=== PATIENT | female | born 1955 | race Caucasian/White ===

== ENCOUNTER → 2022-06-21 | Outpatient (CLI) | payer MEDICARE, SELFPAY ==
--- NOTE | 2022-06-21 12:23 | BI_ITS ---
MAMMOGRAPHY - BILATERAL SCREENING REASON FOR EXAM: Female, 67 years old. Routine annual screening examination. PERTINENT HISTORY: Non-contributory. TECHNIQUE: Digital bilateral breast ej (3D mammographic acquisition) in the CC and MLO projections. 2-D mediolateral oblique (MLO) and craniocaudad (CC) views of both breasts were obtained. CAD: Full Field Digital Mammography with Computer Added Detection was performed. COMPARISON: None. Baseline examination. FINDINGS: Breast Composition: The breasts are heterogeneously dense, which may obscure small masses. There are no dominant masses or suspicious calcifications. No other significant abnormalities are identified. BI/SCRN MAMM (CAD)W/EJ BILAT IMPRESSION: Negative screening mammogram. Yearly followup mammogram recommended. (A) ASSESSMENT CATEGORY: BIRADS Category 1: Negative. A letter regarding these results will be sent to the patient by the facility within 30 days. Approximately 10% of breast cancers are not detected by mammography. A normal mammogram should not delay biopsy of a clinically suspicious abnormality. [id number] Electronically Signed: Ethan Brooks MD at 14:10 EST ,
--- NOTE | 2022-06-21 12:29 | BD_ITS ---
STUDY: DUAL ENERGY X-RAY ABSORPTIOMETRY / DXA REASON FOR EXAM: Female, 67 years old. [id number] TECHNIQUE: Bone Mineral Density (BMD) measurements of lumbar spine and bilateral hips were obtained. COMPARISON: None. FINDINGS: Lumbar Spine (L1-L4): g/cm2 (0.651) / T-score (-3.6) / Z-score (-1.6) Findings are suggestive of osteoporosis with a high fracture risk. Left Femur Total: g/cm2 (0.685) / T-score (-2.1) / Z-score (-0.7) Left Femoral Neck: g/cm2 (0.573) / T-score (-2.5) / Z-score (-0.8) Right Femur Total: g/cm2 (0.681) / T-score (-2.1) / Z-score (-0.7) Right Femoral Neck: g/cm2 (0.619) / T-score (-2.1) / Z-score (-0.4) BD/Dexa Bone Density Study IMPRESSION: The patient is considered osteoporotic as outlined below according to World Brooks Organization (WHO) criteria with a high fracture risk. Reference Information: The T-score is the number of standard deviations above or below the standard which is normal for young adults at their peak bone mineral density. The World Health Organization (WHO) interprets the T-scores as follows: Above -1 Normal bone density Between -1 and -2.5 Osteopenia Equal to / or below -2.5 Osteoporosis As a practical clinical guideline, osteopenia may be graded as follows: Mild -1 through -1.5 Moderate -1.6 through -2.0 Severe -2.1 through -2.4 The Z-score is the number of standard deviations above or below age-matched controls. A Z-score of less than -1.5 would be considered abnormal. References: 1. NIH Osteoporosis and Related Bone Diseases www osteo.org 2. International Society for Clinical Densitometry www iscd.org 3. National Osteoporosis Foundation www nof.org Electronically Signed: Ethan Brooks MD at 9:42 EST ,
== END | disposition home or self-care (01) ==
LOC: OPBD 12:19
PROVIDERS: PCP Family Medicine; Referring Provider Family Medicine; Visit Provider Family Medicine
DX: Z12.31 Encounter for screening mammogram for malignant neoplasm of breast (principal); Z78.0 Asymptomatic menopausal state
CPT/HCPCS: 77063; 77067; 77080

== ENCOUNTER → 2022-08-04 | Outpatient (CLI) | payer MEDICARE, SELFPAY ==
[2022-08-04 13:18] LABS: Vitamin D,25 Hydroxy 49.4 ng/mL
[2022-08-04 13:41] LABS: Anion Gap 9 (5-15); BUN 18 mg/dL (7-18); BUN/Creat Ratio 20.1 RATIO (10-20); Calcium,Total 9.6 mg/dL (8.5-10.1); Chloride 104 mmol/L (98-107); Cholesterol 240 mg/dL (200); Creatinine, Serum 0.89 mg/dL (0.55-1.02); EST Glomerular Filtration Rate 67 mL/min (>60); Est Glom Filt Rate - Afr Amer 81 mL/min (>60); Glucose 145 mg/dL (74-106); High Density Lipoprotein 86 mg/dL; Potassium 4.5 mmol/L (3.5-5.1); Sodium Level 141 mmol/L (136-145); Triglycerides 127 mg/dL; Very Low Density Lipoprotein 25 mg/dL (5-40)
== END | disposition home or self-care (01) ==
LOC: MFPLAB 11:01
PROVIDERS: PCP Family Medicine; Referring Provider Family Medicine; Visit Provider Family Medicine
DX: Z91.89 Other specified personal risk factors, not elsewhere classified (principal); Z13.220 Encounter for screening for lipoid disorders; E55.9 Vitamin D deficiency, unspecified
CPT/HCPCS: 36415; 80048; 80061; 82306

== ENCOUNTER → 2023-09-14 | Outpatient (CLI) | payer MEDICARE, SELFPAY ==
--- NOTE | 2023-09-14 10:56 | BI_ITS ---
MAMMOGRAPHY - BILATERAL SCREENING REASON FOR EXAM: Female, 68 years old. Routine annual screening examination. PERTINENT HISTORY: Non-contributory. TECHNIQUE: Digital bilateral breast ej (3D mammographic acquisition) in the CC and MLO projections. 2-D mediolateral oblique (MLO) and craniocaudad (CC) views of both breasts were obtained. CAD: Full Field Digital Mammography with Computer Added Detection was performed. COMPARISON: Comparison is made with prior study dated June 21, 2022. FINDINGS: Breast Composition: The breasts are heterogeneously dense, which may obscure small masses. There are no dominant masses or suspicious calcifications. No other significant abnormalities are identified. There has been no significant change since the prior study. BI/SCRN MAMM (CAD)W/EJ BILAT IMPRESSION: Stable bilateral screening mammogram. Yearly follow-up mammogram recommended. (A) ASSESSMENT CATEGORY: BIRADS Category 1: Negative. A letter regarding these results will be sent to the patient by the facility within 30 days. Approximately 10% of breast cancers are not detected by mammography. A normal mammogram should not delay biopsy of a clinically suspicious abnormality. [id number] Electronically Signed: Ethan Brooks MD at 13:12 EDT ,
== END | disposition home or self-care (01) ==
PROVIDERS: PCP Family Medicine; Referring Provider Family Medicine; Visit Provider Family Medicine
DX: Z12.31 Encounter for screening mammogram for malignant neoplasm of breast (principal)
CPT/HCPCS: 77063; 77067

== ENCOUNTER → 2023-11-22 | Outpatient (CLI) | payer MEDICARE, SELFPAY ==
[2023-11-22 12:30] LABS: Anion Gap 6 (5-15); BUN 18 mg/dL (7-18); BUN/Creat Ratio 18.3 RATIO (10-20); Chloride 105 mmol/L (98-107); Cholesterol 234 mg/dL (200); Creatinine, Serum 0.98 mg/dL (0.55-1.02); EST Glomerular Filtration Rate 60 mL/min (>60); Est Glom Filt Rate - Afr Amer 72 mL/min (>60); Glucose 100 mg/dL (74-106); High Density Lipoprotein 88 mg/dL; Potassium 4.2 mmol/L (3.5-5.1); Sodium Level 136 mmol/L (136-145); Triglycerides 94 mg/dL; Very Low Density Lipoprotein 19 mg/dL (5-40)
== END | disposition home or self-care (01) ==
LOC: MFPLAB 10:06
PROVIDERS: PCP Family Medicine; Visit Provider Family Medicine
DX: R73.09 Other abnormal glucose (principal); E78.5 Hyperlipidemia, unspecified
CPT/HCPCS: 36415; 80048; 80061

== ENCOUNTER → 2024-03-01 | Outpatient (CLI) | payer MEDICARE, SELFPAY ==
[2024-03-01 12:42] LABS: Anion Gap 3 (5-15); BUN 14 mg/dL (7-18); BUN/Creat Ratio 15.4 RATIO (10-20); Chloride 107 mmol/L (98-107); Cholesterol 240 mg/dL (200); Creatinine, Serum 0.91 mg/dL (0.55-1.02); EST Glomerular Filtration Rate 65 mL/min (>60); Est Glom Filt Rate - Afr Amer 79 mL/min (>60); Glucose 99 mg/dL (74-106); High Density Lipoprotein 99 mg/dL; Potassium 4.3 mmol/L (3.5-5.1); Sodium Level 138 mmol/L (136-145); Triglycerides 89 mg/dL; Very Low Density Lipoprotein 18 mg/dL (5-40)
== END | disposition home or self-care (01) ==
LOC: MFPLAB 10:30
PROVIDERS: PCP Family Medicine; Visit Provider Family Medicine
DX: Z00.00 Encounter for general adult medical examination without abnormal findings (principal); E78.5 Hyperlipidemia, unspecified
CPT/HCPCS: 36415; 80048; 80061

== ENCOUNTER → 2024-09-03 | Outpatient (CLI) | payer OTHER, MEDICARE, SELFPAY ==
[2024-09-03 13:29] LABS: ALB/GLOB Ratio 1.6 RATIO (0.9-2.4); AST(SGOT) 22 U/L (<=31); Alanine Aminotransfer ALT/SGPT 13 U/L (<=34); Albumin, Serum 4.2 g/dL (3.4-4.8); Alkaline Phosphatase 62 U/L (35-104); Anion Gap 11 (5-15); BUN 12 mg/dL (4-19); BUN/Creat Ratio 14.6 RATIO (10-20); Calcium,Total 9.4 mg/dL (7.6-11.0); Carbon Dioxide 25.7 mmol/L (21.0-32.0); Chloride 104 mmol/L (98-108); Cholesterol 219 mg/dL (<=200); Creatinine, Serum 0.82 mg/dL (0.70-1.20); EST Glomerular Filtration Rate 77 (>60); Globulin 2.6 g/dL (2.2-4.2); Glucose 96 mg/dL (70-99); High Density Lipoprotein 74 mg/dL; Low Density Lipoprotein Calc. 127 mg/dL; Potassium 4.3 mmol/L (3.3-5.1); Protein, Total 6.8 g/dL (5.9-8.4); Sodium Level 142 mmol/L (133-145); Total Bilirubin 0.31 mg/dL (0.00-1.30); Triglycerides 89 mg/dL; Very Low Density Lipoprotein 18 mg/dL (5-40); cholesterol:hdl ratio screen 2.95
== END | disposition home or self-care (01) ==
PROVIDERS: PCP Family Medicine; Referring Provider Family Medicine; Visit Provider Family Medicine
DX: R73.09 Other abnormal glucose (principal); E78.5 Hyperlipidemia, unspecified
CPT/HCPCS: 36415; 80053; 80061

== ENCOUNTER → 2024-09-17 | Outpatient (CLI) | payer MEDICARE, SELFPAY ==
--- NOTE | 2024-09-17 15:46 | BI_ITS ---
EXAM: SCRN MAMM (CAD)W/EJ BILAT DATE: 09/17/2024 CLINICAL HISTORY: F, Age 69 y/o , ANNUAL BREAST CANCER RISK ASSESSMENT: Not reported TECHNIQUE: Bilateral screening digital breast tomosynthesis with 2D and 3D images. Computer aided detection. COMPARISON: Prior exam(s) were compared FINDINGS: TISSUE DENSITY: The breast tissue is heterogenously dense, which may obscure small masses. Bilateral Breast Mammographic Findings: No suspicious masses, calcifications or other abnormalities are identified. BI/SCRN MAMM (CAD)W/EJ BILAT IMPRESSION: OVERALL FINAL ASSESSMENT: BIRADS 1 NEGATIVE RECOMMENDATION: Routine annual follow-up in 1 Year A letter with findings and recommendations will be mailed to the patient. Reading Location: [id number]
--- NOTE | 2024-09-17 15:50 | BD_ITS ---
PROCEDURE: DEXA BONE DENSITY STUDY 09/17/2024 REASON FOR EXAM: F, age 69 y/o . Postmenopausal. TECHNIQUE: DEXA scan of sites with data reported below. Scanner utilized: BLOVES REFERENCE LINKS: [facility] Adult Position[facility] COMPARISON: DEXA examination dated 06/21/2022 FINDINGS: BMD and T-SCORES Lumbar spine: 0.675 g/cm2, T-score -3.4 Levels: L1 through L4 Change from prior: 3.7%. Left femoral neck: 0.558 g/cm2, T-score -2.6 Left total hip: 0.693 g/cm2, T-score -2.0 Change from prior: 1.2%. Right femoral neck: 0.611 g/cm2, T-score -2.1 Right total hip: 0.689 g/cm2, T-score -2.1 Change from prior: 1.1%. The World Health Organization has defined the following categories based on bone density: Normal bone density: T-score equal to or greater than -1.0 Osteopenia: T-score between -1.0 and -2.5 Osteoporosis: T-score equal to or less than -2.5 FRAX (or Comparable) Fracture Risk Assessment: 10 Year Probability of Fracture: Major Osteoporotic Fracture: 22% Hip Fracture: 5.8% (Note: FRAX is not to be reported in setting of normal range bone density, osteoporosis on DEXA, known history of osteoporosis, prior osteoporotic hip or vertebral fracture, or for any patient undergoing pharmacological treatment for bone loss.) The National Osteoporosis Foundation (NOF) recommends pharmacological treatment for patients with a FRAX 10-year risk of 3% or higher for a hip fracture, or 20% or higher for a major osteoporotic fracture, to prevent osteoporosis and reduce fracture risk. The patient does meet the pharmacological treatment recommendations for prevention of osteoporosis. BD/Dexa Bone Density Study IMPRESSION: OSTEOPOROSIS. Recommend follow-up as clinically warranted. Reading Location: [id number]
== END | disposition home or self-care (01) ==
PROVIDERS: PCP Family Medicine; Referring Provider Family Medicine; Visit Provider Family Medicine
DX: Z12.31 Encounter for screening mammogram for malignant neoplasm of breast (principal); M81.0 Age-related osteoporosis without current pathological fracture
CPT/HCPCS: 77063; 77067; 77080

== ENCOUNTER 2025-01-31 10:21 | Day surgery (SDC) | payer MEDICARE, SELFPAY ==
[2025-01-31] VITALS (8 sets, daily range): BP systolic 87–139; BP diastolic 60–79; PULSE 75–86; RESP 14–18; TEMP 36.2–36.3; O2SAT 95–99; BMI 20.9
--- NOTE | 2025-01-31 10:35 | HP.PCM_ITS ---
[facility] - General General Date of Admission: 01/31/25 Date of Service: 01/31/25 Chief Complaint: Screening colonoscopy HPI Narrative BONITA HARVEY, is a 69 F who presents for a screening colonoscopy Patient here today for consultation for screening colonoscopy. Last colonoscopy was 10 years ago with no abnormalities. She denies history of colonic polyps. She denies family history of colon cancer. She has regular daily bowel movements. She has no GI symptoms including nausea, vomiting, heartburn, abdominal pain, constipation, diarrhea or blood in her stool. [facility], [facility] Medical History Wears glasses Post-menopausal Leg cramps Non-smoker Home Medications ?Medication ?Instructions ?Recorded ?Last Taken ?Type alendronate 70 mg tablet 70 mg PO MO 12/17/24 Unknown History CARINATION INSTANT BREAKFAST 1 packet PO DAILY 5 01/27/25 History ascorbic acid (vitamin C) 500 mg 500 mg PO DAILY 01/28 Unknown History tablet (C-500) calcium 600 mg capsule 600 mg PO BID 01/28/25 Unkno wn History cholecalciferol (vitamin D3) 25 25 mcg PO BID 01/28/25 Unknown History mcg (1,000 unit) capsule (Vitamin D3) lutein 20 mg capsule 20 mg PO DAILY 01/28/25 Unkn own History magnesium 200 mg tablet 400 mg PO DAILY 01/28/25 Unk nown History multivitamin with iron (Daily 1 tab PO DAILY 01/28/25 01/24/25 History Vitamin with Iron tablet) vitamin E 200 unit capsule 402 mg PO DAILY 01/28/25 Un known History Allergy/AdvReac Type Severity Reaction Status Date / Time No Known Allergies Allergy Verified 01/28/25 10:34 Surgical History Hx of colonoscopy Social History Smoking Status: Never smoker ROS Constitutional Constitutional: Denies fatigue, fever(s), poor appetite, weight gain or weight loss Gastrointestinal Gastrointestinal: Denies belching, bloating, change in bowel habits, change in stool character, chewing difficulty, coffee ground emesis, constipation, cramping, diarrhea, dyspepsia, dysphagia, early satiety, excessive flatus, fecal incontinence, heartburn, hematemesis, hematochezia, hemorrhoids, loose stools, melena, nausea, odynophagia, rectal bleeding, tenesmus, vomiting or weight sergio nges Physical Exam Const alert, oriented x3, no apparent distress and healthy appearing General Appearance: cooperative GI normal to inspection, nondistended, normoactive bowel sounds, soft to palpation, non-tender and non-distended Percussion: normal to percussion Rectal Exam: deferred Assessment & Plan Assessment/Plan (1) Screening for colon cancer: PLAN: Assessment and Plan Assessment and Plan (1) Screening for colon cancer: Status: Acute Plan: Bonita is a 69-year-old female patient here today for consultation for screening colonoscopy. Patient's last colonoscopy was 10 years ago without abnormalities. She denies family history of colon cancer. She denies all GI symptoms. She was scheduled for screening colonoscopy. - Colonoscopy - Follow-up as needed
[2025-01-31] MEDS: Lactated Ringers 1,000 ML 15 ML IV (10:50)
--- NOTE | 2025-01-31 10:51 | PRE.ANES_ITS ---
ASA Classification* ASA Classification ASA Classification: 2 Assessment & Plan Anesthesia* Anesthesia Assessment Anesthesia Assessment: Discussed sedation and/or anesthesia options, risks, benefits, and alternatives with patient/parents/legal guardian/POA. Questions invited. The patient/parents/legal guardian/POA seems to understand and agrees to proceed with anesthesia plan. Reviewed the physical assessment, medical history, allergy history and patient home medications list prior to surgery/procedure/anesthetic and documented any changes. Performed airway and anesthesia risk assessments. Anesthesia Type Anesthesia Type: MAC Anesthesia Focused Assessment* Temperature: 97.4 F Pulse Rate: 86 Blood Pressure: 139/79 Respiratory Rate: 18 Pulse Ox: 99 Airway Assessment Mouth opens: >3 cm Mallampati Score: II Labs Anesthesia Preop lab: CBC CHEMISTRY Potassium, (3.3-5.1) 4.3 mmol/L 09/03/24, 09:30 Sodium, (133-145) 142 mmol/L 09/03/24, 09:30 BUN, (4-19) 12 mg/dL 09/03/24, 09:30 Creatinine, (0.70-1.20) 0.82 mg/dL 09/03/24, 09:30 Glucose, (70-99) 96 mg/dL 09/03/24, 09:30 COAG Pre-Assessment Diagnosis/Proposed Procedure Planned Operative Procedure(s): COLONOSCOPY Anesthesia History Anesthesia History - family preservation caseworker: Anesthesia History - family preservation caseworker Hx Hospitalization No 01/28/25 10:39 Any Problems With Anesthesia No 01/28/25 10:39 Cholinesterase deficiency No 01/28/25 10:39 You/Your Family Experience No 01/28/25 10:39 fever (hyperthermia) with Relationship Recent Exposure to Contagious No 01/31/25 10:46 Disease Does patient have nerve No 01/28/25 10:39 stimulator Patient instructed to have device shut off --Does patient have Pacemaker No 01/31/25 10:46 or ICD? When Was Last Pacemaker Check QUESTION #4 FULL TEXT: You/Your Family Experience fever (hyperthermia) with Anesthesia Last Oral Intake Last Oral intake: Last Oral Intake NPO since 08:00 01/31/25 10:46 Meds taken in AM with sips of No 01/31/25 10:46 water? Meds patient instructed to take am of surgery PONV PONV - family preservation caseworker: PONV - family preservation caseworker Female Yes 01/28/25 10:39 HX of Motion Sickness Yes 01/28/25 10:39 HX of N/V After Surgery No 01/28/25 10:39 Non-Smoker Yes 01/28/25 10:39 Duration of Surgery greater No 01/28/25 10:39 than 60 minutes Number of Risk Factors 3 01/28/25 10:39 PONV Score Moderate Risk 01/28/25 10:39 Height & Weight Height & Weight: Anesthesia: Height & Weight Height 5 ft 5 in 01/31/25 10:46 Weight: 57.2 kg 01/31/25 10:46 Body Mass Index (BMI) 20.9 01/31/25 10:46 Respiratory Assessment Respiratory Assessment - family preservation caseworker: Respiratory Tract Infection Hx - family preservation caseworker Hx Respiratory Tract Infection No 01/28/25 10:39 STOP Sleep Apnea STOP Sleep Apnea - family preservation caseworker: STOP Sleep Apnea - family preservation caseworker Hx Hypertension No 01/28/25 10:39 Hx Sleep Apnea No 01/28/25 10:39 CPAP BIPAP Do you snore loudly (louder No 01/28/25 10:39 than talking or can be heard Do you often feel tired/ No 01/28/25 10:39 fatigued/ sleepy during daytime? Has anyone observed you stop No 01/28/25 10:39 breathing during sleep? STOP Results Negative 01/28/25 10:39 QUESTION #5 FULL TEXT : Do you snore loudly (louder than talking or can be heard through closed doors)? Tobacco Use History Tobacco Use History - family preservation caseworker: Tobacco Use History - family preservation caseworker Tobacco Use Non-smoker 02/11/13 01:31 Smoking Status Never smoker 01/28/25 10:39 Hx Tobacco Use No 01/28/25 10:39 Years Smoking Packs Smoked per Day Smoking Cessation Date was within the last 15 years Hx Smoking Cessation Date Hx Smoking Cessation Counseling Hematologic Medial History Hematologic Hx - family preservation caseworker: Hematologic Medical Hx - laboratory chief Hx of Blood Transfusion No 01/28/25 10:39 Hx of Transfusion in last 3 No 01/28/25 10:39 Months Date of Last Transfusion (if within last 3 months) Ever experience any problems No 01/28/25 10:39 with transfusion(s)? Specify any problems Hx of Preganancy in last 3 No 01/28/25 10:39 Months Nurse Filling Out Transfusion DSCHRIBER 01/28/25 10:39 & Questions: Date: 01/28/25 01/28/25 10:39 Time: 10:42 01/28/25 10:39 Patient unable to answer at this time (ie. confused, unrespo /Reproduction History /Reproductive History - family preservation caseworker: /Reproductive Hx- family preservation caseworker Hx Now No 01/28/25 10:39 Gestational Age (in weeks): EDC: Hx Hx Para Hx Section SAB No 01/28/25 10:39 Active Medications Active Medications: Current Medications Generic Name Dose Route Start Last Admin Trade Name Freq PRN Reason Stop Dose Admin Lactated Ringer's 1,000 mls @ 15 mls/hr 01/31/25 10:30 01/31/25 10:50 IV 15 mls/hr .Q48H JASMYN Administration PFSH Medical History Wears glasses Post-menopausal Leg cramps Non-smoker Home Medications ?Medication ?Instructions ?Recorded ?Last Taken ?Type alendronate 70 mg tablet 70 mg PO MO 12/17/24 Unknown History CARINATION INSTANT BREAKFAST 1 packet PO DAILY 5 01/27/25 History ascorbic acid (vitamin C) 500 mg 500 mg PO DAILY 01/28 Unknown History tablet (C-500) calcium 600 mg capsule 600 mg PO BID 01/28/25 Unkno wn History cholecalciferol (vitamin D3) 25 25 mcg PO BID 01/28/25 Unknown History mcg (1,000 unit) capsule (Vitamin D3) lutein 20 mg capsule 20 mg PO DAILY 01/28/25 Unkn own History magnesium 200 mg tablet 400 mg PO DAILY 01/28/25 Unk nown History multivitamin with iron (Daily 1 tab PO DAILY 01/28/25 01/24/25 History Vitamin with Iron tablet) vitamin E 200 unit capsule 402 mg PO DAILY 01/28/25 Un known History Allergy/AdvReac Type Severity Reaction Status Date / Time No Known Allergies Allergy Verified 01/31/25 10:45 Surgical History Hx of colonoscopy Social History Smoking Status: Never smoker Review of Systems (Anesthesia) ROS Narrative System reviewed and no additional complaints, except as documented.
--- NOTE | 2025-01-31 11:30 | COLBX_PTH ---
PATIENT: ASHLEIGH HARVEY LOC: EN U#:[id number] AGE/SX: 69/F ROOM: RE01/31/[address]: Dr. Luis Blount DO : 1955 BED: DIS: 01/31/2025 SPEC #: [id number] RECD: 01/31/25 12:45 STATUS: ELSA REMk #: [id number] AKI: 01/31/25 11:[address]: Luis Blount DEPT: SURGICAL PATHOLOGY RECD BY: Pablo Diane ENTERED: 01/31/25 15:43 SP TYPE: COLON BX OT DR: Dr. Otto Quiñones MD Tissues: A - Descending colon Procedures: Surgery Specimen Level IV HEADER OPERATION: Colonoscopy, polypectomy PRE-OP DIAGNOSIS: Screening, polyp TISSUE SUBMITTED: A- Descending colon polyp MICROSCOPIC DIAGNOSIS A. Descending colon, polyp, biopsy: * Tubular adenoma. MICROSCOPIC DESCRIPTION Slides are reviewed. GROSS DESCRIPTION A. Received in fixative is one container labeled with the patient's name and designated Descending colon polyp. The specimen consists of two irregular fragments of light teixeira soft tissue that measure 0.8 and 1.1 cm. The specimen is totally submitted in one cassette. OR 01/31/2025 CPT:17879
--- NOTE | 2025-01-31 11:38 | OP.COLON_ITS ---
Patient Name: Bonita Leon Procedure Date: 01/31/2025 11:02 AM Date of : 1955 Age: 69 Procedure: Colonoscopy Indications: Screening for colorectal malignant neoplasm Providers: Luis Blount DO Referring MD: Otto Quiñones MD Medicines: Monitored Anesthesia Care Patient Profile: This is a 69 year old female. Refer to note in patient chart for documentation of history and physical. Last Colonoscopy: 10 years ago. Complications: No immediate complications. Procedure: Pre-Anesthesia Assessment: - Prior to the procedure, a History and Physical was performed, and patient medications and allergies were reviewed. The patient is competent. The risks and benefits of the procedure and the sedation options and risks were discussed with the patient. All questions were answered and informed consent was obtained. Patient identification and proposed procedure were verified by the physician in the pre-procedure area. Mental Status Examination: alert and oriented. Airway Examination: normal oropharyngeal airway and neck mobility. Respiratory Examination: clear to auscultation. CV Examination: normal. Prophylactic Antibiotics: The patient does not require prophylactic antibiotics. Prior Anticoagulants: The patient has taken no anticoagulant or antiplatelet agents. ASA Grade Assessment: II - A patient with mild systemic disease. After reviewing the risks and benefits, the patient was deemed in satisfactory condition to undergo the procedure. The anesthesia plan was to use monitored anesthesia care (MAC). Immediately prior to administration of medications, the patient was re-assessed for adequacy to receive sedatives. The heart rate, respiratory rate, oxygen saturations, blood pressure, adequacy of pulmonary ventilation, and response to care were monitored throughout the procedure. The physical status of the patient was re-assessed after the procedure. After I obtained informed consent, the scope was passed under direct vision. Throughout the procedure, the patient's blood pressure, pulse, and oxygen saturations were monitored continuously. The Colonoscope was introduced through the anus and advanced to the cecum, identified by appendiceal orifice and ileocecal valve. The colonoscopy was performed without difficulty. The patient tolerated the procedure well. The quality of the bowel preparation was adequate. The ileocecal valve, appendiceal orifice, and rectum were photographed. Scope In: 11:09:48 AM Scope Withdrawal Time 0 hours 10 minutes 8 seconds Scope Out: 11:32:03 AM Total Procedure Duration Time 0 hours 22 minutes 15 seconds Findings: The perianal and digital rectal examinations were normal. An 8 mm polyp was found in the descending colon. The polyp was sessile. The polyp was removed with a hot snare. Resection and retrieval were complete. Verification of patient identification for the specimen was done. Estimated blood loss was minimal. The exam was otherwise without abnormality on direct and retroflexion views. Impression: - One 8 mm polyp in the descending colon, removed with a hot snare. Resected and retrieved. - The examination was otherwise normal on direct and retroflexion views. Recommendation: - Discharge patient to home. - Resume previous diet. - Continue present medications. - Await pathology results. - Repeat colonoscopy in 5 years for surveillance. Procedure Code(s): --- Professional --- 65287, Colonoscopy, flexible; with removal of tumor(s), polyp(s), or other lesion(s) by snare technique CPT copyright 2021 [employer]. All rights reserved. The codes documented in this report are preliminary and upon hcc coders review may be revised to meet current compliance requirements. Luis Blount DO 01/31/2025 11:38:15 AM This report has been signed electronically. Number of Addenda: 0 Note Initiated On: 01/31/2025 11:02 AM
--- NOTE | 2025-01-31 11:38 | OP.PROVAT_ITS ---
01/31/2025 Otto Quiñones MD [address] [id number] Re : Colonoscopy procedure for Bonita Leon Dear Dr. Quiñones This procedure was performed on Friday, January 31, 2025. My impressions and recommendations are as follows: Impressions : - One 8 mm polyp in the descending colon, removed with a hot snare. Resected and retrieved. - The examination was otherwise normal on direct and retroflexion views. Recommendations : - Discharge patient to home. - Resume previous diet. - Continue present medications. - Await pathology results. - Repeat colonoscopy in 5 years for surveillance. My findings are described in the full procedure note, which is enclosed. If I can be of further assistance, please feel free to contact me at . Sincerely, Luis Blount, 01/31/2025 11:38:15 AM This report has been signed electronically.
--- NOTE | 2025-01-31 11:40 | PCM.POST.ANE ---
Anesthesia: Postop Eval I Current Vital Signs Temperature: 97.2 F Pulse Rate: 78 Blood Pressure: 89/60 Respiratory Rate: 16 Pulse Ox: 97 Oxygen Delivery Method: Room Air Assessment Airway patent: Yes Spontaneous unlabored respirations: Yes Mental status: Asleep nausea: No Vomiting: No Anesthesia Complication: No Fluid Hydration Crystalloid volume administer (ml): 500 Total IV fluid infused: 500 Progress Note Anesthesia document: Postop Eval 1 completed: Yes
--- NOTE | 2025-01-31 13:17 | PCM.POSTANE2 ---
Anesthesia Postop Eval I Sum Postop Eval Completion status Anesthesia document: Postop Eval 1 completed: Yes Anesthesia Postop Eval I Summary Anesthesia Postop Eval I Summary: Anesthesia Postop Eval I: Assessment Summary Airway patent Yes 01/31/25 11:42 [email or web address] Spontaneous unlabored Yes 01/31/25 11:42 [email or web address] respirations Mental status Asleep 01/31/25 11:42 [email or web address] nausea No 01/31/25 11:42 [email or web address] Vomiting No 01/31/25 11:42 [email or web address] Anesthesia Postop Eval I: Fluid Summary Crystalloid volume administer 500 01/31/25 11:42 [email or web address] (ml) Colloids volume administered ( ml) Blood Product volume administered (ml) Total IV fluid infused 500 01/31/25 11:42 [email or web address] Anesthesia Postop Eval I: Summary Notes Anesthesia Complication No 01/31/25 11:42 [email or web address] Anesthesia Complication Comment: Post-operative progress note Anesthesia: Postop Eval II Evaluation Mental status: Awake Pain Level: 0 nausea: No Vomiting: No
== END 2025-01-31 12:36 | disposition home or self-care (01) ==
LOC: EN 10:22 → AC 10:25
PROVIDERS: PCP Family Medicine; Referring Provider Family Medicine; Visit Provider Internal Medicine Gastroenterology
PROC: 0DJD8ZZ Inspection of Lower Intestinal Tract, Via Natural or Artificial Opening Endoscopic (ICD-10-PCS; CPT 45378; principal; 2025-01-31 11:25)
DX: Z12.11 Encounter for screening for malignant neoplasm of colon (principal); D12.4 Benign neoplasm of descending colon
CPT/HCPCS: 45385; 88305; J2405

== ENCOUNTER → 2025-03-13 | Outpatient (CLI) | payer MEDICARE, SELFPAY ==
[2025-03-13 10:45] LABS: Anion Gap 9 (5-15); BUN 16 mg/dL (4-19); BUN/Creat Ratio 17.0 RATIO (10-20); Calcium,Total 9.7 mg/dL (7.6-11.0); Carbon Dioxide 29.1 mmol/L (21.0-32.0); Chloride 102 mmol/L (98-108); Cholesterol 229 mg/dL (<=200); Glucose 99 mg/dL (70-99); Low Density Lipoprotein Calc. 126 mg/dL; Potassium 4.4 mmol/L (3.3-5.1); Triglycerides 103 mg/dL; Very Low Density Lipoprotein 21 mg/dL (5-40); cholesterol:hdl ratio screen 2.69
== END | disposition home or self-care (01) ==
LOC: MFPLAB 08:35
PROVIDERS: PCP Family Medicine; Visit Provider Family Medicine
DX: E78.5 Hyperlipidemia, unspecified (principal)
CPT/HCPCS: 36415; 80048; 80061